=== PATIENT | female | born 1940 | race African-American/Black ===

== ENCOUNTER → 2023-01-27 | Day surgery (SDC) | payer OTHER, BC | END | disposition home or self-care (01) | LOC: JRADUS-SUR 10:32 | PROVIDERS: ATTEND Surgery | PROC: 07D53ZX Extraction of Right Axillary Lymphatic, Percutaneous Approach, Diagnostic (ICD-10-PCS; principal; 2023-01-27) | DX: R59.0 Localized enlarged lymph nodes (principal) | CPT/HCPCS: 19083; 87899; 88305-TC; 88342-TC; A4648 ==